=== PATIENT | female | born 1980 | race Caucasian/White ===

== ENCOUNTER 2016-07-02 11:51 | Emergency (ER) | payer OTHER ==
[2016-07-02] MEDS ORDERED: NS 0.9% 1000 ML* 1,000 ML IV ONE ×2 (12:16→14:23)
[2016-07-02] MEDS ORDERED: Ondansetron INJ* 2 MG/ML VIAL IV ONE (12:17)
[2016-07-02 12:31] LABS: Hematocrit 41 % (35-47); Hemoglobin 13.9 g/dl (12.0-16.0); Mean Corpuscular HGB Conc 34 g/dl (31-36); Mean Corpuscular Hemoglobin 31 pg (27-31); Mean Corpuscular Volume 91 fL (80-97); Mean Platelet Volume 8 um3 (7.4-10.4); Red Blood Count 4.51 10^6/ul (4.0-5.4); Red Cell Distribution Width 13 % (10.5-15); White Blood Count 7.1 10^3/ul (3.5-10.8)
--- NOTE | 2016-07-02 12:45 | RAD ---
HISTORY: Abdominal pain, nausea and vomiting COMPARISONS: None VIEWS: Frontal views of the abdomen. FINDINGS: BOWEL: There is a nonobstructive bowel gas pattern. CALCULI: There is a 0.4 cm calculus of the upper pole of left renal parenchymal shadow. BONES AND SOFT TISSUES: There are no osseous abnormalities. OTHER FINDINGS: The lung bases are clear. There is no subphrenic gas. IMPRESSION: 1. NONOBSTRUCTIVE BOWEL GAS PATTERN. 2. LEFT-SIDED NEPHROLITHIASIS
[2016-07-02 12:50] LABS: ALT 22 U/L (7-52); AST 24 U/L (13-39); Albumin 4.3 g/dL (3.2-5.2); Alkaline Phosphatase 57 U/L (34-104); Amylase 29 U/L (29-103); Anion Gap 12 mmol/L (2-11); BUN/Creatinine Ratio 7.9 (8-20); Blood Urea Nitrogen 7 mg/dL (6-24); C Reactive Protein < 1.00 mg/L (< 5.00); CO2 Carbon Dioxide 21 mmol/L (22-32); Calcium 9.5 mg/dL (8.6-10.3); Chloride 105 mmol/L (101-111); EGFR African American 91.8 (>60); EGFR Non-African American 71.4 (>60); Globulin 3.4 g/dL (2-4); Glucose 83 mg/dL (70-100); Lipase 14 U/L (11.0-82.0); Magnesium 1.9 mg/dL (1.9-2.7); Potassium 3.5 mmol/L (3.5-5.0); Sodium 138 mmol/L (133-145); Total Protein 7.7 g/dL (6.4-8.9)
--- NOTE | 2016-07-02 16:36 | ED ---
Sony Armenta Adam, scribed for Denny Williamson MD on 07/02/16 at 1218 . GI/ HPI - HPI Summary HPI Summary: Pt is a 36 year old female presenting with abdominal pain and N/V/D. Her abdominal pain is described as a stabbing pain located diffusely in her upper abdomen which does not radiate anywhere else. Nothing aggravates or alleviates the pain. All of her symptoms set on 2 days ago and she states that she has not had anything to eat or drink in the past 36 hours. She denies any edema. She denies any recent travel, unusual foods, or recent abx. 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 PMHx of ulcerative colitis. - History of Current Complaint Chief Complaint: EDNauseaVomitDiarrh Stated Complaint: N,V,ABD PAIN Hx Obtained From: Patient Onset/Duration: Started Days Ago, Atraumatic, Still Present Timing: Constant Severity: Moderate Current Severity: Moderate Pain Intensity: 7 Location of Pain: Diffuse - Upper abdomen Pain Characteristics: Sharp Associated Signs and Symptoms: Positive: Nausea, Vomiting, Diarrhea Aggravating Factor(s): Nothing Alleviating Factor(s): Nothing - Allergy/Home Medications Allergies/Adverse Reactions: Allergies Allergy/AdvReac Type Severity Reaction Status Date / Time Latex Allergy Unknown Unknown Verified 07/02/16 11:55 Reaction Details PMH/Surg Hx/FS Hx/Imm Hx Endocrine/Hematology History: Denies: Hx Diabetes, Hx Thyroid Disease Cardiovascular History: Denies: Hx Hypertension Respiratory History: Denies: Hx Asthma, Hx Chronic Obstructive Pulmonary Disease (COPD) GI History: Reports: Other GI Disorders - ULCERATIVE COLITIS Denies: Hx Ulcer History: Reports: Hx Kidney Stones Sensory History: Reports: Hx Contacts or Glasses - WEARS GLASSES OR CONTACS Opthamlomology History: Reports: Hx Contacts or Glasses - WEARS GLASSES OR CONTACS - Surgical History Surgery Procedure, Year, and Place: APPENDECTOMY 07/02. STENT PLACED FOR KIDNEY STONES Hx Anesthesia Reactions: No Infectious Disease History: No Infectious Disease History: Denies: Hx Hepatitis, Hx Human Immunodeficiency Virus (HIV), Traveled Outside the [place] in Last 30 Days - Family History Known Family History: Positive: Other - Negative malignant hyperthermia - Social History Occupation: Employed Full-time Lives: Alone Alcohol Use: None Hx Substance Use: No Substance Use Type: Reports: None Hx Tobacco Use: No Smoking Status (MU): Never Smoked Tobacco Have You Smoked in the Last Year: No Review of Systems Negative: Fever Positive: Abdominal Pain, Vomiting, Diarrhea, Nausea Negative: Edema All Other Systems Reviewed And Are Negative: Yes Physical Exam - Summary Physical Exam Summary: VITAL SIGNS: Reviewed. GENERAL: Patient is a well developed and nourished female who is lying comfortable in the stretcher. She is not in any acute distress. She ambulated to the room. Patient is not in any acute respiratory distress. HEAD AND FACE: Normocephalic and atraumatic. EYES: PERRLA, EOMI x 2, No injected conjunctiva. EARS: Hearing grossly intact. Ear canals and tympanic membranes are WNL. MOUTH: Oropharynx within normal limits. NECK: Supple, trachea is midline, no adenopathy, no JVD. CHEST: Symmetric, no tenderness at palpation LUNGS: Clear to auscultation bilaterally. No wheezing or crackles. CVS: RRR,, S1 and S2 present, no murmurs or gallops appreciated. ABDOMEN: Soft, Diffuse abdominal tenderness. No signs of distention. Positive bowel sounds. No rebound no guarding, and no masses palpated. No abdominal bruit or pulsations. EXTREMITIES: FROM in all major joints, no edema, no cyanosis or clubbing. NEURO: Alert and oriented x 3. No acute neurological deficits. Speech is normal. SKIN: Dry and warm Triage Information Reviewed: Yes Vital Signs On Initial Exam: Initial Vitals Temp Pulse Resp BP Pulse Ox 98.3 F 90 17 149/93 100 07/02/16 11:53 07/02/16 11:53 07/02/16 11:53 07/02/16 11:53 07/02/16 11:53 Vital Signs Reviewed: Yes Diagnostics - Vital Signs Vital Signs Temp Pulse Resp BP Pulse Ox 07/02/16 11:54 98.3 F 95 17 149/93 100 07/02/16 11:53 98.3 F 90 17 149/93 100 - Laboratory Lab Results: Lab Results 07/02/16 07/02/16 07/02/16 Range/Units 12:15 12:15 12:15 WBC 7.1 (3.5-10.8) 10^3/ul RBC 4.51 (4.0-5.4) 10^6/ul Hgb 13.9 (12.0-16.0) g/dl Hct 41 (35-47) % MCV 91 (80-97) fL MCH 31 (27-31) pg MCHC 34 (31-36) g/dl RDW 13 (10.5-15) % Plt Count 294 (150-450) 10^3/ul MPV 8 (7.4-10.4) um3 Neut % (Auto) 66.4 (38-83) % Lymph % (Auto) 28.3 (25-47) % Crockett % (Auto) 3.9 (1-9) % Eos % (Auto) 1.2 (0-6) % Baso % (Auto) 0.2 (0-2) % Absolute Neuts (auto) 4.7 (1.5-7.7) 10^3/ul Absolute Lymphs (auto) 2.0 (1.0-4.8) 10^3/ul Absolute Monos (auto) 0.3 (0-0.8) 10^3/ul Absolute Eos (auto) 0.1 (0-0.6) 10^3/ul Absolute Basos (auto) 0 (0-0.2) 10^3/ul Absolute Nucleated RBC 0 10^3/ul Nucleated RBC % 0 Sodium 138 (133-145) mmol/L Potassium 3.5 (3.5-5.0) mmol/L Chloride 105 (101-111) mmol/L Carbon Dioxide 21 L (22-32) mmol/L Anion Gap 12 H (2-11) mmol/L BUN 7 (6-24) mg/dL Creatinine 0.89 (0.51-0.95) mg/dL Est GFR ( Amer) 91.8 (>60) Est GFR (Non-Af Amer) 71.4 (>60) BUN/Creatinine Ratio 7.9 L (8-20) Glucose 83 (70-100) mg/dL Lactic Acid 1.0 (0.5-2.0) mmol/L Calcium 9.5 (8.6-10.3) mg/dL Magnesium 1.9 (1.9-2.7) mg/dL Total Bilirubin 1.80 H (0.2-1.0) mg/dL AST 24 (13-39) U/L ALT 22 (7-52) U/L Alkaline Phosphatase 57 (34-104) U/L C-Reactive Protein < 1.00 (< 5.00) mg/L B-Natriuretic Peptide ( - 100) pg/mL Total Protein 7.7 (6.4-8.9) g/dL Albumin 4.3 (3.2-5.2) g/dL Globulin 3.4 (2-4) g/dL Albumin/Globulin Ratio 1.3 (1-3) Amylase 29 (29-103) U/L Lipase 14 (11.0-82.0) U/L Beta HCG, Quant < 0.60 mIU/mL 07/02/16 Range/Units 12:15 WBC (3.5-10.8) 10^3/ul RBC (4.0-5.4) 10^6/ul Hgb (12.0-16.0) g/dl Hct (35-47) % MCV (80-97) fL MCH (27-31) pg MCHC (31-36) g/dl RDW (10.5-15) % Plt Count (150-450) 10^3/ul MPV (7.4-10.4) um3 Neut % (Auto) (38-83) % Lymph % (Auto) (25-47) % Crockett % (Auto) (1-9) % Eos % (Auto) (0-6) % Baso % (Auto) (0-2) % Absolute Neuts (auto) (1.5-7.7) 10^3/ul Absolute Lymphs (auto) (1.0-4.8) 10^3/ul Absolute Monos (auto) (0-0.8) 10^3/ul Absolute Eos (auto) (0-0.6) 10^3/ul Absolute Basos (auto) (0-0.2) 10^3/ul Absolute Nucleated RBC 10^3/ul Nucleated RBC % Sodium (133-145) mmol/L Potassium (3.5-5.0) mmol/L Chloride (101-111) mmol/L Carbon Dioxide (22-32) mmol/L Anion Gap (2-11) mmol/L BUN (6-24) mg/dL Creatinine (0.51-0.95) mg/dL Est GFR ( Amer) (>60) Est GFR (Non-Af Amer) (>60) BUN/Creatinine Ratio (8-20) Glucose (70-100) mg/dL Lactic Acid (0.5-2.0) mmol/L Calcium (8.6-10.3) mg/dL Magnesium (1.9-2.7) mg/dL Total Bilirubin (0.2-1.0) mg/dL AST (13-39) U/L ALT (7-52) U/L Alkaline Phosphatase (34-104) U/L C-Reactive Protein (< 5.00) mg/L B-Natriuretic Peptide 19 ( - 100) pg/mL Total Protein (6.4-8.9) g/dL Albumin (3.2-5.2) g/dL Globulin (2-4) g/dL Albumin/Globulin Ratio (1-3) Amylase (29-103) U/L Lipase (11.0-82.0) U/L Beta HCG, Quant mIU/mL Result Diagrams: 07/02/16 12:15 07/02/16 12:15 Lab Statement: Any lab studies that have been ordered have been reviewed, and results considered in the medical decision making process. - Radiology ABDOMEN X-RAY Radiology Interpretation Completed By: Radiologist - IMPRESSION: 1. NONOBSTRUCTIVE BOWEL GAS PATTERN. 2. LEFT-SIDED NEPHROLITHIASIS GIGU Course/Dx - Course Assessment/Plan: Pt is a 36 year old female presenting with abdominal pain and N /V/D. Her abdominal pain is described as a stabbing pain located diffusely in her upper abdomen which does not radiate anywhere else. Nothing aggravates or alleviates the pain. All of her symptoms set on 2 days ago and she states that she has not had anything to eat or drink in the past 36 hours. She denies any edema. She denies any recent travel, unusual foods, or recent abx. 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 PMHx of ulcerative colitis. Blood test are found within normal limits except for CO2 21, AG 12. Abdominal XR: Nonobstructive bowel gas pattern. Left sided nephrolithiasis. In the ED course she was given IVF for rehydration, Zofran for nausea and vomiting. After medications she is feeling better. She reports pain improves and she prefers no abdominal or pelvic CT. Since she is feeling better patient will be discharged home w/ F/U of PMD and GI. I discussed all the findings and test results with the patient. Patient was instructed to return to the emergency room immediately if any of the symptoms return or worsens. Plan of care was discussed with the patient and understands and agrees. All questions were answered at patient satisfaction. There were no further complaints or concerns. Lung exam before discharge: CTA B/L. Good air exchange. No wheezing or crackles heard. CVS: S1 and S2 present. No murmurs appreciated. Patient is alert and oriented x 3. Patient is hemodynamically stable. Patient will be discharged home with follow up PCP in the next 2-3 days - Diagnoses Differential Diagnoses - Female: Colitis, Gastritis, Gastroenteritis (Viral), Gastroenteritis (Bacterial), Gerd, Urinary Tract Infection Provider Diagnoses: Abdominal pain, Nausea, Diarrhea Discharge - Discharge Plan Condition: Stable Disposition: HOME Prescriptions: Ondansetron TAB* [Zofran 4 MG Tab*] 4 mg PO Q6H PRN #10 tab PRN Reason: Vomiting The documentation as recorded by the Sony albert Adam accurately reflects the service I personally performed and the decisions made by me, Denny Williamson MD.
[2016-07-02 17:12] VITALS: BP 100/68
== END 2016-07-02 17:09 | disposition home or self-care (01) ==
LOC: ED 11:51
DX: R10.9 Unspecified abdominal pain (principal); R11.0 Nausea; R19.7 Diarrhea, unspecified; N20.0 Calculus of kidney; Z87.442 Personal history of urinary calculi; Z87.11 Personal history of peptic ulcer disease
CPT/HCPCS: 36415; 74020; 80053; 82150; 83605; 83690; 83735; 83880; 84702; 85025; 86140; 96360; 96374; 99283; J2405

== ENCOUNTER 2017-04-23 12:35 | Day surgery (SDC) | payer OTHER ==
--- NOTE | 2017-04-22 16:32 | HP ---
CC: Dr. Kulkarni * DATE OF ADMISSION: 04/23/2017 - SDS AGE: 36-year-old female. ADMITTING DIAGNOSES: 1. Hematuria. 2. Calculus left kidney. PLANNED PROCEDURE: Shockwave lithotripsy of left renal calculus. SURGEON: Dr. Alba. HISTORY OF PRESENT ILLNESS: Echo Kenney is a 36-year-old lady with a history of recurrent renal calculi. She had gross hematuria yesterday followed by some left-sided flank pain. An ultrasound in my office revealed a 7 mm calculus at the left ureteropelvic junction with mild left caliectasis. PAST MEDICAL HISTORY: Significant for: 1. Ulcerative colitis. 2. Renal calculi. MEDICATIONS ON ADMISSION: 1. Hydroxychloroquine one tablet daily. 2. Mercaptopurine 100 mg daily. 3. Remicade every six weeks. ALLERGIES: LATEX. REVIEW OF SYSTEMS: She denies any chest pain or shortness of breath. There is no history of diabetes mellitus or any other major systemic illness. PHYSICAL EXAMINATION GENERAL: Pleasant, healthy-appearing, young lady. VITAL SIGNS: Blood pressure 130/92, pulse 80 per minute, oxygen saturation 98 percent on room air, temperature 98. CARDIOVASCULAR: Regular rate and rhythm, S1, S2. LUNGS: Clear bilaterally. ABDOMEN: Soft with mild left flank tenderness. IMPRESSION: [id number]-old lady with a 7 mm calculus at the left ureteropelvic junction. PLAN: Planned procedure is shockwave lithotripsy of left renal calculus. I have discussed the procedure, including possible risks of bleeding, infection, incomplete fragmentation and obstructing fragments requiring later stent insertion. [id number]/[facility] #: [id number] MTDD
[~2017-04-23 12:35] MED LIST: Buffered Lidocaine 0.9% SYRIN* 5 ML/SYR SYRINGE INTRADERM ONE; Dexamethasone IV* 4 MG/ML 1 ML (4 MG) IV SLOW PU ONE; Famotidine IV* 10 MG/ML 2 ML (20 mg) IV ONE
[2017-04-23] MEDS ORDERED: Famotidine IV* 10 MG/ML 2 ML (20 mg) ONE (12:43)
[2017-04-23] MEDS ORDERED: cefTRIAXone(*) 2 GM ADDV.VIAL IVPB ONE (12:43)
[2017-04-23] MEDS ORDERED: Dexamethasone IV* 4 MG/ML 1 ML (4 MG) ONE (12:43)
--- NOTE | 2017-04-23 13:15 | RAD ---
Indication: Renal calculi, prelithotripsy. Single view of the abdomen is reviewed. There is stool in the right colon. Calcification is noted overlying the left psoas margin just adjacent to the L2 transverse process on the left. This is unchanged from previous exam. IMPRESSION: Calcification overlying the left psoas margin adjacent to the transverse process of L2.
[2017-04-23] MEDS ORDERED: Midazolam* 1 MG/ML 10 ML VIAL (10 MG) ONE (14:55)
[2017-04-23] MEDS ORDERED: Ondansetron INJ* 2 MG/ML VIAL ONE (15:01)
[2017-04-23] MEDS ORDERED: Lidocaine 2% PF * 5 ML VIAL ONE (15:01)
[2017-04-23] MEDS ORDERED: fentaNYL* 50 MCG/ML 5 ML VIAL (250 MCG VIAL) ONE (15:01)
[2017-04-23] MEDS ORDERED: Propofol* 10 MG/ML 20 ML BTL IV PUSH ONE ×2 (15:03→15:28)
[2017-04-23] MEDS ORDERED: Furosemide IV* 10 MG/ML 2 ML VIAL (20 MG) ONE (15:10)
[2017-04-23] MEDS ORDERED: fentaNYL* 50 MCG/ML 2 ML VIAL (100 MCG VIAL) IV PRN (15:20)
[2017-04-23] MEDS ORDERED: Naloxone* 0.4 MG/ML 1 ML VIAL IV PRN (15:20)
[2017-04-23] MEDS ORDERED: Ondansetron INJ* 2 MG/ML VIAL IV PRN (15:20)
[2017-04-23] MEDS ORDERED: DiMENhydriNATE IV* 50 MG/ML VIAL IV PUSH PRN (15:20)
[2017-04-23] MEDS ORDERED: oxyCODONE/Acetamin 5/325 MG* TAB PO PRN (15:20)
[2017-04-23 16:36] VITALS: BP 125/89
[2017-04-23] MEDS ORDERED: oxyCODONE/Acetamin 5/325 MG* TAB ONE (16:38)
--- NOTE | 2017-04-23 17:28 | RAD ---
INDICATION: Postop lithotripsy. COMPARISON: Comparison is made with a prior study from from April 23, 2017 from 5 hours earlier. TECHNIQUE: Frontal supine films of the abdomen were obtained. FINDINGS: The small bowel and colon appear nondistended. There are several small calcifications which project over the mid and inferior aspect of the left kidney. The largest calcification measures 6 mm in size. IMPRESSION: FINDINGS MOST CONSISTENT WITH SMALL LEFT RENAL CALCULI.
--- NOTE | 2017-04-24 13:15 | OP ---
CC: Dr. Kulkarni * DATE OF OPERATION: 04/23/17 - SDS DATE OF : 78 SURGEON: Bakari Alba MD ANESTHESIOLOGIST: Hernandez Martinez MD ANESTHESIA: General. PRE-OP DIAGNOSIS: Left renal calculus. POST-OP DIAGNOSIS: Left renal calculus. OPERATIVE PROCEDURE: Shock wave lithotripsy of left renal calculus. INDICATIONS: Echo Kenney is a 36-year-old lady with ulcerative colitis and a history of renal calculi. She was evaluated after a recent episode of gross hematuria and left flank pain and noted to have an approximately 7-mm calculus in the area of the left renal pelvis. COMPLICATIONS: None. POSTOPERATIVE CONDITION: Stable. DESCRIPTION OF PROCEDURE: After induction of general anesthesia, the patient was placed on lithotripsy table in the supine position. The calculus in the renal pelvis was identified using fluoroscopy and shock wave lithotripsy was commenced. Periodic imaging revealed good localization. A total of 2400 shocks were delivered, most of which were done at a rate of 60 shocks per minute. It was a little difficult to assess the degree of fragmentation using the fluoroscopy, so my plan is to obtain a postoperative x-ray to assess the true degree of fragmentation and the patient tolerated the procedure satisfactorily and was transferred back to the recovery area in stable condition. [id number] #: [id number] MTDD
== END 2017-04-23 17:05 | disposition home or self-care (01) ==
LOC: OR 12:35
PROVIDERS: ATTEND Urology
DX: N20.0 Calculus of kidney (principal); R31.0 Gross hematuria; K51.90 Ulcerative colitis, unspecified, without complications
CPT/HCPCS: 74018; 81025; A9270-GY; J0696; J1100; J1940; J2250; J2405; J2704; J3010